=== PATIENT | female | born 1955 | race Caucasian/White ===

== ENCOUNTER 2019-02-19 13:00 | Emergency (ER) | payer OTHER ==
[2019-02-19 13:30] VITALS: BP 154/96; PULSE 78; TEMP 97.6; BMI 24.3
[2019-02-19] MEDS ORDERED: SODIUM CHLORIDE 0.9% 1000 ML INFUS.BAG IV ONE (13:32)
[2019-02-19] MEDS ORDERED: ALPRAZolam 1 MG TABLET PO PRN (13:32)
--- NOTE | 2019-02-19 13:32 | PDOC ---
History of Present Illness - General Chief Complaint: Overdose Stated Complaint: PT STATES SHE TOOK ADDITIONAL DOSE HER MEDICATIO History Source: Patient Exam Limitations: No Limitations - History of Present Illness Initial Comments: 02/19/19 13:19 63 yo F h/o depression, anxiety constipation ADHD here after taking extra dose of all of her medication approx 7 hrs apart. pt states she woke up early this am at 5 am took here meds. unusual time of day for her, accidently took again at 1 pm. pt now co feeling dizzy, anxious, . she did induce vomiting just after taking them. saw vivanz and zoloft . threw up multiple times. denies thoughts of SI, or HI. was an accident. otherwise no complaints. took second dose of medication at 1 pm. on zoloft 50mg, welbutrin 300mg vivanz 60mg, Abilify 2.5mg, levothyroixe 250mcg , losartan/ hctz 100/.12.5 lipitor 10 mg. asa 81, trulanz for constipation Past History - Past Medical History Allergies/Adverse Reactions: Allergies Allergy/AdvReac Type Severity Reaction Status Date / Time No Known Allergies Allergy Verified 02/19/19 13:02 Home Medications: Ambulatory Orders Aripiprazole [Abilify -] 2.5 mg PO DAILY 02/19/19 Aspirin [ASA -] 81 mg PO DAILY 02/19/19 Atorvastatin Ca [Lipitor] 10 mg PO DAILY 02/19/19 Bupropion HCl [Wellbutrin Xl] 300 mg PO DAILY 02/19/19 Levothyroxine [Synthroid -] 1 tab PO DAILY 02/19/19 Lisdexamfetamine Dimesylate [Vyvanse] 60 mg PO DAILY 02/19/19 Losartan/Hydrochlorothiazide [Losartan-Hctz 100-12.5 mg Tab] 1 tab PO DAILY Sertraline HCl [Zoloft -] 50 mg PO DAILY 02/19/19 HTN: Yes Psychiatric Problems: Yes (anxiety) - Immunization History Immunization Up to Date: Yes - Suicide/Smoking/Psychosocial Hx Smoking History: Never smoked Review of Systems - Review of Systems Constitutional: No: Chills, Diaphoresis, Fever HEENTM: No: Eye Pain Respiratory: No: Cough, Orthopnea, Shortness of Breath Cardiac (ROS): No: Chest Pain, Edema, Irregular Heart Rate Neurological: No: Headache, Numbness, Paresthesia Psychiatric: Yes: Anxiety All Other Systems: Reviewed and Negative *Physical Exam - Physical Exam Comments: 02/19/19 14:17 Awake alert no acute distress lungs are clear bilaterally heart is regular with any murmurs rubs or gallops abdomen is soft nontender skin is warm and dry extremities are warm and well-perfused no rash. Neurologic the patient is alert and oriented 3. Psychiatric patient is calm quadrant verbal speech is clear not pressured. She denies SI or HI there is no increased muscle tone or rigidity Heart Score/ECG Review #1 General ECG Interpretation: Sinus Rhythm, Normal Rate (65), Normal Intervals, No acute ischemic changes ED Treatment Course - LABORATORY CBC & Chemistry Diagram: 02/19/19 13:50 02/19/19 13:50 Medical Decision Making - Medical Decision Making 02/19/19 14:17 63-year-old female history of mood disorder anxiety DHD here today status post accidental overdose of her antidepressant, her ADHD medication and her antipsychotic in addition to her blood pressure medication. Review of patient's medical history and med list reveals majority of medications are still within therapeutic doses. Major concern is the doubling of her antihypertensive. However at this time patient is still with elevated blood pressure likely contracted from her ADHD medication. We will treat her with IV fluids order baseline labs to rule out any underlying renal disease. Short observation. Patient was given a Xanax counteract stimulant medication and to calm her nerves. We'll likely be discharged home with no further intervention. Patient states that she is not suicidal this was an accidental overdose and is appropriate 02/19/19 14:45 pt feels better. labs unremarakble. given 1 L NS will dc home. *DC/Admit/Observation/Transfer Diagnosis at time of Disposition: Accidental overdose - Discharge Dispostion Disposition: HOME Condition at time of disposition: Improved - Referrals Referrals: Christophe Hinton [Primary Care Provider] - - Patient Instructions Printed Discharge Instructions: DI for Drug Overdose in Adults Additional Instructions: Be sure to drink plenty of fluids. Your labs are unremarkable today. Her EKG is normal return for any abnormal muscle activity stiffness seizures or any other concerns. Medications which she took today should not cause any further problems resume her medications as normal tomorrow morning. There is recommended to continue using a pill box with a calendar to easily monitor the date. return for any problems or concerns. follow up with your primary doctor. - Post Discharge Activity
[2019-02-19] MEDS ORDERED: ALPRAZolam 0.25 MG TABLET ONE (13:50)
[2019-02-19 13:59] LABS: BASO % 0.7 % (0-2.0); EOS % 1.5 % (0-4.5); HEMATOCRIT 34.5 % (32.4-45.2); HEMOGLOBIN 11.8 GM/dl (10.7-15.3); LYMPH % 39.6 % (8-40); MCH 30.8 pg (25.7-33.7); MCHC 34.2 g/dl (32.0-36.0); MEAN PLT VOLUME 12.7 fl (7.5-11.1); MONO % 12.4 % (3.8-10.2); NEUT % 45.8 % (42.8-82.8); PLATELET COUNT 177 K/MM3 (134-434); RBC 3.83 M/mm3 (3.60-5.2); RDW 13.1 % (11.6-15.6)
[2019-02-19 14:12] LABS: CREATININE 0.6 mg/dl (0.55-1.3); POTASSIUM 3.5 mmol/L (3.5-5.1); TOT PROT 6.5 g/dl (6.4-8.2)
[2019-02-19 14:28] LABS: BILIRUBIN,TOTAL 0.7 mg/dl (0.2-1)
--- NOTE | 2019-02-20 08:20 | EKG ---
Test Reason : Blood Pressure : / mmHG Vent. Rate : 065 BPM Atrial Rate : 065 BPM P-R Int : 172 ms QRS Dur : 104 ms QT Int : 446 ms P-R-T Axes : 050 072 065 degrees QTc Int : 463 ms NORMAL SINUS RHYTHM NONSPECIFIC T WAVE ABNORMALITY ABNORMAL ECG NO PREVIOUS ECGS AVAILABLE Confirmed by JANKI RDZ, REYNA ([id number]) on 02/20/2019 8:20:07 AM Referred By: DAMIAN LEE Confirmed By:REYNA SHEARER MD
== END 2019-02-19 14:57 | disposition home or self-care (01) ==
LOC: FER 13:00
PROC: 3E0337Z Introduction of Electrolytic and Water Balance Substance into Peripheral Vein, Percutaneous Approach (ICD-10-PCS; principal; 2019-02-19)
DX: T65.91XA Toxic effect of unspecified substance, accidental (unintentional), initial encounter (principal); F41.9 Anxiety disorder, unspecified; F90.9 Attention-deficit hyperactivity disorder, unspecified type
CPT/HCPCS: 36415; 80053; 85025; 93005; 99282-25; J7030